=== PATIENT | female | born 1975 | race Caucasian/White ===

== ENCOUNTER 2016-05-13 01:33 | Emergency (ER) | payer OTHER | END 2016-05-13 02:32 | disposition home or self-care (01) | LOC: FER 01:33 | DX: L02.214 Cutaneous abscess of groin (principal); F17.210 Nicotine dependence, cigarettes, uncomplicated; Z86.14 Personal history of Methicillin resistant Staphylococcus aureus infection; Z90.710 Acquired absence of both cervix and uterus | CPT/HCPCS: 86403; 87070; 87077; 87185; 87186; 87205 ==

== ENCOUNTER 2016-07-21 08:57 | Emergency (ER) | payer OTHER | END 2016-07-21 09:56 | disposition home or self-care (01) | LOC: FER 08:57 | DX: T16.1XXA Foreign body in right ear, initial encounter (principal); H66.91 Otitis media, unspecified, right ear; F17.210 Nicotine dependence, cigarettes, uncomplicated ==

== ENCOUNTER 2021-10-26 19:00 | Emergency (ER) | payer OTHER ==
[2021-10-26] MEDS ORDERED: VIBRAMYCIN100 MG PO (20:10)
== END 2021-10-26 20:36 | disposition home or self-care (01) ==
LOC: FER 19:00
DX: L02.416 Cutaneous abscess of left lower limb (principal); E78.5 Hyperlipidemia, unspecified; F17.210 Nicotine dependence, cigarettes, uncomplicated; Z79.899 Other long term (current) drug therapy; Z28.310 Unvaccinated for COVID-19